=== PATIENT | male | born 1970 | race Caucasian/White ===

== ENCOUNTER 2017-02-17 16:46 | Emergency (ER) | payer OTHER ==
[~2017-02-17] VITALS: Ht 170.2 cm; Wt 87.1 kg
[2017-02-17 19:46] LABS: BASOPHIL % 0.3 % (0-2); PLATELET COUNT 285 x10^3mcL (130-400); RED CELL DISTRIBUTION WIDTH 12.1 % (11.5-14.5)
[2017-02-17 20:11] LABS: ALBUMIN 4.3 g/dL (3.4-5.0); ALKALINE PHOSPHATASE 66 U/L (46-116); ALT/SGPT 35 U/L (16-63); AMYLASE 74 U/L (25-115); AST/SGOT 22 U/L (15-37); BILIRUBIN TOTAL 0.5 mg/dL (0.20-1.00); CALCIUM 8.9 mg/dL (8.5-10.1); CARBON DIOXIDE 30.9 mmol/L (21-32); CHLORIDE SERUM 99 mmol/L (98-107); CHOLESTEROL 147 mg/dL (<200); CREATININE SERUM 0.7 mg/dL (0.7-1.3); GFR1 > 60 mL/min; GLUCOSE SERUM 101 mg/dL (74-106); HDL CHOLESTEROL 47 mg/dL (40-60); LIPASE 129 IU/L (73-393); SODIUM SERUM 140 mmol/L (136-145); T4(THYROXINE) 8.5 ug/dL (4.7-13.3); TOTAL PROTEIN, SERUM 8.1 g/dL (6.4-8.2)
[2017-02-17 20:23] LABS: POTASSIUM SERUM 2.9 mmol/L (3.5-5.1)
[2017-02-17 21:03] LABS: UA SPECIFIC GRAVITY <=1.005 (1.005-1.035)
[2017-02-17 21:04] LABS: microscopic required? YES; urine erythrocyte TRACE (NEGATIVE)
[2017-02-17 21:05] LABS: AMPHETAMINE QUAL UR NONE DETECTED (NEG <=1000)
[2017-02-17 22:28] VITALS: BP 157/96
== END 2017-02-17 22:28 | disposition home or self-care (01) ==
LOC: ED 16:46
PROVIDERS: Emergency Medicine
DX: E87.6 Hypokalemia (principal); I10 Essential (primary) hypertension; E78.00 Pure hypercholesterolemia, unspecified
CPT/HCPCS: 36415; 83880

== ENCOUNTER 2020-07-04 10:22 | Emergency (ER) | payer OTHER ==
[~2020-07-04] VITALS: Ht 172.7 cm; Wt 94.3 kg
[2020-07-04 10:26] VITALS: Ht 172.7 cm; Wt 94.3 kg
[2020-07-04 12:53] VITALS: BP 162/74
== END 2020-07-04 12:53 | disposition home or self-care (01) ==
LOC: ED 10:22
DX: R51.9 Headache, unspecified (principal); I10 Essential (primary) hypertension; F10.10 Alcohol abuse, uncomplicated; E78.00 Pure hypercholesterolemia, unspecified; Z76.0 Encounter for issue of repeat prescription

== ENCOUNTER 2020-07-05 14:15 | Emergency (ER) | payer OTHER, SELFPAY ==
[~2020-07-05] VITALS: Ht 170.2 cm; Wt 93.9 kg
[2020-07-05 14:17] VITALS: BP 141/92; Ht 170.2 cm; Wt 93.9 kg
== END 2020-07-05 15:33 | disposition home or self-care (01) ==
LOC: ED 14:15
DX: R51.9 Headache, unspecified (principal); J02.9 Acute pharyngitis, unspecified; I10 Essential (primary) hypertension; E78.00 Pure hypercholesterolemia, unspecified; Z20.822 Contact with and (suspected) exposure to COVID-19
CPT/HCPCS: U0003